=== PATIENT | female | born 1945 | race Caucasian/White ===

== ENCOUNTER 2021-03-04 11:04 | Emergency (ER) | payer MEDICARE, BC ==
[2021-03-04] MEDS: Albuterol/Ipratropium 3.0-0.5 MG/3 ML Neb Soln ONE (12:18)
[2021-03-04] MEDS: Albuterol/Ipratropium 3.0-0.5 MG/3 ML Neb Soln NEB ONE (12:24)
[2021-03-04] MEDS: Ibuprofen 600 MG Tab PO ONE (13:25)
[2021-03-04] MEDS: Ibuprofen 600 MG Tab ONE (13:25)
--- NOTE | 2021-03-04 15:25 | CR ---
DATE OF SERVICE: 03/04/2021 CLINICAL DATA: SOB, COUGH AP chest: No priors. The heart size is normal. The aorta is ectatic. The the lungs are clear. No pneumothorax. No pleural effusions. No evidence of acute intrathoracic disease. MTDD
--- NOTE | 2021-03-04 21:48 | ER ---
HISTORY OF PRESENT ILLNESS: 75-year-old lady here with complaints of some shortness of breath and coughing symptoms and some chest discomfort on the anterior chest wall. She was seen as a tele-med visit earlier and actually had a nebulizer treatment done after this, which resolved the anterior wall chest discomfort. She states she has some neck pressure that she has had since she had her first COVID shot 3 to 4 weeks ago. The patient denies any problems with fever, wheezing, or GI symptoms. The patient tells me that when she coughs it is mostly dry, occasionally she has coughed up a little bit of clear phlegm. OBJECTIVE: GENERAL APPEARANCE: The patient is awake and alert, no obvious distress. VITAL SIGNS: Reviewed. She is afebrile. Blood pressure 154/77, respirations 18, O2 sats are 94% on room air. LUNGS: Clear to auscultation with mildly reduced air exchange throughout the lung barajas. CARDIAC: Heart sounds distinct. S1, S2 present. No murmurs noted. SKIN: Warm and dry. ABDOMEN: Soft, nontender. HEENT: Oral mucous membranes are slightly dry. Tonsils are not enlarged or injected. Pharynx not inflamed. EXTREMITIES: The patient has mild lower extremity edema bilaterally. LABORATORY DATA AND X-RAY: Chest x-ray is obtained and it shows a little bit of congestion in the right lower lobe, but this could also be chronic emphysema type changes. EKG shows a normal sinus rhythm. LABORATORY DATA: Labs include a CBC which is normal. Comprehensive metabolic panel shows a potassium level is low at 3.1, otherwise unremarkable. Troponin is negative. COVID is negative. DIAGNOSES: 1. Bronchitis with some chronic emphysema type changes. 2. Hypokalemia. TREATMENT PLAN: The patient has been set up with a nebulizer machine through the clinic. She is going to start using albuterol with neb treatments plus she has an albuterol puffer. I will add Pulmicort 0.5 mg/unit dose. She is to use 1 unit dose per nebulizer b.i.d. for 7 days. I will also start her on K-Dur 10 mEq tablets 2 tablets today and tomorrow and then 1 tablet a day for 13 more days. She is to go home and rest and take her medications as directed. I want her to follow up depending on how she is feeling. She should be recheck in the clinic within 2 to 3 days. If her symptoms are significantly improving, she could be seen early next week. She will need a repeat potassium level done in about 10 to 14 days and I advised the patient to hold off on getting her second COVID until her symptoms resolve and then get her rescheduled. CRS/MODL /[id number]
== END 2021-03-04 14:05 | disposition home or self-care (01) ==
LOC: LB.ED 11:04
DX: J43.9 Emphysema, unspecified (principal); E87.6 Hypokalemia; Z20.822 Contact with and (suspected) exposure to COVID-19
CPT/HCPCS: 36415; 71045; 80053; 84484; 85025; 93005; 99285-25; A9270-GY; J7620-GY; U0002

== ENCOUNTER 2022-06-10 04:13 | Emergency (ER) | payer MEDICARE, BC ==
[2022-06-10] MEDS: methylPREDNISolone Sodium Succinate 125 MG/2 ML SDV IM ONE (04:50)
[2022-06-10] MEDS: Lidocaine 1% 10 ML MDV INJECT ONE (04:51)
[2022-06-10] MEDS ORDERED: Acetaminophen/HYDROcodone 325-5 MG Tab ONE (05:00)
== END 2022-06-10 05:29 | disposition home or self-care (01) ==
LOC: LB.ED 04:13
DX: M79.2 Neuralgia and neuritis, unspecified (principal); I10 Essential (primary) hypertension; E66.9 Obesity, unspecified; Z68.30 Body mass index [BMI] 30.0-30.9, adult; Z88.8 Allergy status to other drugs, medicaments and biological substances; Z91.041 Radiographic dye allergy status; Z88.0 Allergy status to penicillin; Z88.2 Allergy status to sulfonamides; Z88.1 Allergy status to other antibiotic agents; Z79.899 Other long term (current) drug therapy
CPT/HCPCS: 96372; 99283; A9270; J2930

== ENCOUNTER 2023-04-19 10:29 | Emergency (ER) | payer MEDICARE, BC ==
[2023-04-19 10:47] VITALS: BP 146/99; PULSE 78
== END 2023-04-19 11:19 | disposition home or self-care (01) ==
LOC: LB.ED 10:29
DX: M54.2 Cervicalgia (principal); R51.9 Headache, unspecified; I10 Essential (primary) hypertension; Z91.041 Radiographic dye allergy status; Z88.0 Allergy status to penicillin; Z88.2 Allergy status to sulfonamides; Z79.899 Other long term (current) drug therapy
CPT/HCPCS: 70450; 72125; 99284

== ENCOUNTER 2025-02-07 14:09 | Emergency (ER) | payer MEDICARE, BC ==
[2025-02-07 14:44] LABS: BASOPHILS ABSOLUTE AUTO 0.05 K/uL (0.02-0.10); BASOPHILS PERCENT AUTO 0.5 % (0.0-0.5); EOSINOPHILS ABSOLUTE AUTO 0.43 K/uL (0.04-0.40); HEMATOCRIT 44.9 % (37.0-47.0); HEMOGLOBIN 14.6 g/dL (11.5-16.5); LYMPHOCYTES ABSOLUTE AUTO 2.91 K/uL (1.50-4.00); LYMPHOCYTES PERCENT AUTO 27.1 % (20.0-40.0); MEAN CORPUSCULAR HEMOGLOBIN 30.7 pg (27.0-32.0); MEAN CORPUSCULAR HGB CONC 32.5 g/dL (31.0-35.0); MEAN CORPUSCULAR VOLUME 94 fL (76-96); MEAN PLATELET VOLUME 10.7 fL (6.0-10.0); MONOCYTES PERCENT AUTO 9.3 % (3.0-10.0); NEUTROPHILS ABSOLUTE AUTO 6.36 K/uL (2.00-7.50); NEUTROPHILS PERCENT AUTO 59.1 % (45.0-70.0); PLATELET COUNT,PLT 190 K/uL (150-500); RED BLOOD CELL COUNT 4.76 M/uL (3.80-5.80); RED CELL DISTRIBUTION WIDTH 14.2 % (11.0-16.0); WHITE BLOOD CELL COUNT,WBC 10.8 K/uL (4.0-11.0)
[2025-02-07 14:47] LABS: APPEARANCE,URINE CLEAR (CLEAR); COLOR,URINE YELLOW; GLUCOSE,URINE NEGATIVE (NEGATIVE); KETONES,URINE NEGATIVE (NEGATIVE); PH,URINE 5.5 (5.0-8.0); PROTEIN,URINE NEGATIVE (NEGATIVE)
[2025-02-07 14:48] LABS: BILIRUBIN,URINE NEGATIVE (NEGATIVE); LEUKOCYTE ESTERASE,URINE MODERATE (NEGATIVE); NITRITE,URINE NEGATIVE (NEGATIVE); UROBILINOGEN,URINE 0.2 E.U./dL (0.2-1.0)
[2025-02-07 14:51] LABS: RBC,URINE 0-5 /HPF; SQUAMOUS EPITHELIAL CELLS,UR FEW /HPF
[2025-02-07 15:18] LABS: A/G RATIO 0.9 (0.8-2.0); ALBUMIN 3.6 g/dL (3.4-5.0); ANION GAP 13.2 mmol/L (5.0-15.0); BILIRUBIN TOTAL 0.4 mg/dL (0.0-1.0); BUN/CREATININE RATIO 33.3 (6-25); CALCIUM 9.4 mg/dL (8.5-10.1); CARBON DIOXIDE,CO2 27.5 mmol/L (21.0-32.0); CREATININE 0.75 mg/dL (0.55-1.02); EST CRCL DRUG DOSING (CG) 63.37 mL/min; POTASSIUM,K 3.7 mmol/L (3.5-5.1); PROTEIN TOTAL,TP 7.4 g/dL (6.4-8.2); TSH ULTRASENSITIVE 2.108 uIU/mL (0.358-3.740)
[2025-02-07 15:30] LABS: OCCULT BLOOD,URINE TRACE-LYSED (NEGATIVE)
[2025-02-07 16:48] LABS: INFLUENZA A NAA NEGATIVE (NEGATIVE); INFLUENZA B NAA NEGATIVE (NEGATIVE)
[2025-02-07 16:51] LABS: CORONAVIRUS COVID-19 NAA NEGATIVE (NEGATIVE)
== END 2025-02-07 16:20 | disposition home or self-care (01) ==
LOC: LB.ED 14:09
DX: N39.0 Urinary tract infection, site not specified (principal); I10 Essential (primary) hypertension; J45.909 Unspecified asthma, uncomplicated; E66.9 Obesity, unspecified; Z88.0 Allergy status to penicillin; Z88.2 Allergy status to sulfonamides; Z91.041 Radiographic dye allergy status; Z88.8 Allergy status to other drugs, medicaments and biological substances; Z79.899 Other long term (current) drug therapy; Z68.31 Body mass index [BMI] 31.0-31.9, adult
CPT/HCPCS: 0240U; 36415; 71045; 80053; 81001; 84443; 84484; 85025; 93005; 99285

== ENCOUNTER 2025-02-20 08:31 | Observation (INO) | payer MEDICARE, BC ==
[2025-02-20] MEDS: Aspirin 81 MG Tab.Chew PO ONE (09:02)
[2025-02-20] MEDS: Nitroglycerin 0.4 MG Tab.SL SL PRN (09:04)
[2025-02-20] MEDS ORDERED: Sodium Chloride 0.9% 10 ML Syringe FLUSH PRN (09:08)
[2025-02-20 09:34] LABS: HEMATOCRIT 44.8 % (37.0-47.0); HEMOGLOBIN 14.9 g/dL (11.5-16.5); MEAN CORPUSCULAR HEMOGLOBIN 30.8 pg (27.0-32.0); MEAN CORPUSCULAR HGB CONC 33.3 g/dL (31.0-35.0); RED BLOOD CELL COUNT 4.83 M/uL (3.80-5.80); RED CELL DISTRIBUTION WIDTH 13.8 % (11.0-16.0); WHITE BLOOD CELL COUNT,WBC 9.8 K/uL (4.0-11.0)
[2025-02-20] MEDS: Morphine 4 MG/ML VIAL IVPUSH ONE (09:35)
[2025-02-20 09:45] LABS: COLOR,URINE OTHER
[2025-02-20 09:46] LABS: APPEARANCE,URINE SLIGHTLY CLOUDY (CLEAR); BILIRUBIN,URINE NEGATIVE (NEGATIVE); GLUCOSE,URINE NEGATIVE (NEGATIVE); KETONES,URINE NEGATIVE (NEGATIVE); LEUKOCYTE ESTERASE,URINE LARGE (NEGATIVE); NITRITE,URINE NEGATIVE (NEGATIVE); OCCULT BLOOD,URINE MODERATE (NEGATIVE); PH,URINE 6.5 (5.0-8.0); PROTEIN,URINE NEGATIVE (NEGATIVE); RBC,URINE 0-5 /HPF; UROBILINOGEN,URINE 0.2 E.U./dL (0.2-1.0)
[2025-02-20 09:47] LABS: AMORPHOUS SEDIMENT,URINE FEW /HPF; BACTERIA,URINE MODERATE /HPF; RENAL EPITHELIAL CELLS,URINE OCCASIONAL /HPF; SQUAMOUS EPITHELIAL CELLS,UR FEW /HPF
[2025-02-20 09:55] LABS: ALBUMIN 3.5 g/dL (3.4-5.0); ANION GAP 10.3 mmol/L (5.0-15.0); BILIRUBIN TOTAL 0.6 mg/dL (0.0-1.0); BUN/CREATININE RATIO 22.8 (6-25); CALCIUM 9.2 mg/dL (8.5-10.1); CARBON DIOXIDE,CO2 29.5 mmol/L (21.0-32.0); CREATININE 0.79 mg/dL (0.55-1.02); EST CRCL DRUG DOSING (CG) 60.16 mL/min; MAGNESIUM 1.9 mg/dL (1.8-2.4); POTASSIUM,K 3.8 mmol/L (3.5-5.1); PROTEIN TOTAL,TP 7.1 g/dL (6.4-8.2); TROPONIN I HIGH SENSITIVITY 4.9 pg/ml (<=60.4)
[2025-02-20] MEDS: Ketorolac 15 MG/ML SDV IVPUSH SCH (10:11)
[2025-02-20] MEDS: Orphenadrine 60 MG/2 ML Inj IM ONE (10:45)
[2025-02-20] MEDS: hydrALAZINE 20 MG/ML SDV IVPUSH ONE (12:27)
[2025-02-20] MEDS: Losartan 50 MG Tab PO ONE (13:01)
[2025-02-20] MEDS: diazePAM 5 MG/ML MDV ONE (13:04)
[2025-02-20] MEDS ORDERED: Acetaminophen/HYDROcodone 325-5 MG Tab PO PRN (14:12)
[2025-02-20] MEDS: Acetaminophen/HYDROcodone 325-5 MG Tab PO PRN (15:09)
[2025-02-20] MEDS: Lisinopril 5 MG Tab PO ONE (16:27)
[2025-02-20] MEDS: Ondansetron 4 MG/2 ML SDV IVPUSH ONE (17:10)
[2025-02-20] MEDS: Ciprofloxacin 500 MG Tab PO SCH (19:19)
[2025-02-20] MEDS: Metoprolol Tartrate 50 MG Tab PO SCH (19:19)
[2025-02-20] MEDS: Cyclobenzaprine 10 MG Tab PO PRN (19:19)
[2025-02-21] MEDS ORDERED: Non-Formulary Medication 1 Each (Cholecalciferol (Vitamin D3) [Vitamin D3] 50 MCG Tablet) PO SCH (08:00)
[2025-02-21] MEDS ORDERED: Non-Formulary Medication 1 Each (Escitalopram [Lexapro] 10 MG Tablet) PO SCH (08:00)
[2025-02-21] MEDS ORDERED: Non-Formulary Medication 1 Each (Zinc [Zinc] 50 MG Tablet) PO SCH (08:00)
[2025-02-21] MEDS: Sennosides/Docusate Sodium 50-8.6 MG Tab PO SCH (08:14)
[2025-02-21] MEDS: Cholecalciferol (Vitamin D3) 25 MCG Tab PO SCH (08:14)
[2025-02-21] MEDS: Zinc (Zinc Gluconate) 50 MG Tab PO SCH (08:15)
[2025-02-21] MEDS: Escitalopram 20 MG Tab PO SCH (08:15)
[2025-02-21] MEDS: Acetaminophen 325 MG Tab PO PRN (08:16)
[2025-02-21 08:54] LABS: ANION GAP 14.4 mmol/L (5.0-15.0); BUN/CREATININE RATIO 25.7 (6-25); CALCIUM 9.3 mg/dL (8.5-10.1); CARBON DIOXIDE,CO2 27.4 mmol/L (21.0-32.0); CREATININE 0.7 mg/dL (0.55-1.02); EST CRCL DRUG DOSING (CG) 67.89 mL/min; POTASSIUM,K 4.8 mmol/L (3.5-5.1); TROPONIN I HIGH SENSITIVITY 4.6 pg/ml (<=60.4)
== END 2025-02-21 10:27 | disposition home or self-care (01) ==
LOC: LB.ED 08:31 → LB.MS 13:19
PROVIDERS: ADMIT Surgery; ATTEND Surgery
DX: I16.0 Hypertensive urgency (principal); M54.2 Cervicalgia; I10 Essential (primary) hypertension; J45.909 Unspecified asthma, uncomplicated; Z79.899 Other long term (current) drug therapy; Z88.0 Allergy status to penicillin; Z88.2 Allergy status to sulfonamides; Z91.041 Radiographic dye allergy status
CPT/HCPCS: 36415; 70450; 71045; 72125; 80048; 80053; 81001; 83735; 84484; 85027; 87086; 93005; 93010; 96372; 96374; 96375; 99222; 99238; 99285-25; A9270-GY; G0378; J0360; J1885; J2270; J2360; J3360